=== PATIENT | male | born 1995 | race African-American/Black ===

== ENCOUNTER 2022-11-07 17:56 | Emergency (ER) | payer SELFPAY ==
[2022-11-07 18:05] VITALS: BP 124/58; PULSE 77; O2SAT 95; BMI 21.4
--- NOTE | 2022-11-07 18:06 | ED.GENADULT ---
HPI - General Adult General Chief complaint: Nausea/Vomiting/Diarrhea Stated complaint: drug use Time Seen by Provider: 11/07/22 18:06 Source: patient and EMS Mode of arrival: EMS Limitations: no limitations History of Present Illness HPI narrative: Patient is a 27 year old assigned male at with no reported medical history presenting to the emergency department today after being found on the side of the road by EMS. Patient states that he was tired so he sat down and EMS picked him up to come here. Patient states that he would like to rest and then leave. Patient states that he is homeless. Patient denies any drug use. Patient denies any dizziness, lightheadedness, abdominal pain, nausea, vomiting, fever, chills, blurry vision, double vision, loss of vision, chest pain, difficulty breathing, shortness of breath, back pain, night sweats, pain with urination, increased urinary frequency, increased urinary urgency, blood in his urine or stool, syncope or a near syncopal episode, recent trauma or falls, bowel incontinence, bladder incontinence, bowel retention, bladder retention, or any other complaints at this time. Severity: mild Relieving factors: none Exacerbating factors: none Associated symptoms: denies other symptoms Treatments prior to arrival: none Related Data Allergies Allergy/AdvReac Type Severity Reaction Status Date / Time Unable to Assess Allergy Unverified 11/07/22 18:32 Review of Systems Constitutional: Constitutional: Reports no additional constitutional complaints, Denies chills, Denies fever(s) and Denies night sweats Eyes: Eyes: Reports no additional eye complaints, Denies blurry vision, Denies change in vision, Denies diplopia, Denies eye discharge, Denies loss of vision and Denies eye pain ENT: Denies dizziness Cardiovascular: Cardiovascular: Reports no additional cardiovascular complaints, Denies chest pain, Denies lightheadedness, Denies Loss of Consciousness and Denies dyspnea Respiratory: Respiratory: Reports no additional respiratory complaints and Denies dyspnea Gastrointestinal: Gastrointestinal: Reports no additional gastrointestinal complaints, Denies abdominal pain, Denies melena, Denies hematochezia, Denies change in bowel habits and Denies change in stool character Genitourinary: Genitourinary: Reports no additional male genitourinary complaints, Denies hematuria, Denies oliguria, Denies difficulty urinating, Denies dysuria, Denies urinary frequency, Denies urinary hesitancy, Denies urinary incontinence and Denies urinary urgency Musculoskeletal: Musculoskeletal: Reports no additional musculoskeletal complaints, Denies numbness and Denies tingling Neurologic: Denies dizziness, Denies loss of vision, Denies numbness and Denies tingling Psychiatric: Psychiatric: Reports no additional psychiatric complaints Endocrine: Endocrine: Reports no additional endocrine complaints Hematologic/Lymphatic: Hematologic/Lymphatic: Reports no additional hematologic/lymphatic complaints Allergic/Immunologic: Allergic/Immunologic: Reports no additional allergic/immunologic complaints PMFSH Past Medical History Attestation statement: The following information was validated with the patient. Source: old records reviewed and nursing notes reviewed Physical Exam ED Vital Signs: Vital Signs - 24 hr 11/07/22 21:52 11/07/22 22:58 11/08/22 00:16 Temperature 98.2 F 97.9 F Pulse Rate 52 56 72 Respiratory Rate 12 12 16 Blood Pressure 97/68 104/58 L 99/55 L Pulse Oximetry 98 94 97 Oxygen Delivery Method Room Air Room Air Room Air BMI result Body Mass Index 21.4 Const General: cooperative, no acute distress, alert and awake Nutritional Appearance: well nourished Orientation/consciousness: patient oriented x3 Limitations: no limitations HENMT Head: Yes normal to inspection and Yes atraumatic Ears: hearing grossly normal bilaterally and external ears normal General nose exam: Normal external nose present, no nasal discharge noted and no epistaxis Face and sinus: Yes normal facial exam, No abrasion and No laceration Mouth: Normal oral and palatal mucosa present, no drooling and no muffled voice Eyes General: appearance normal, both eyes and all related structures Periorbital: periorbital findings normal Eyelids: Yes eyelids normal Conjunctivae: conjunctivae normal Pupils: Equal, round and reactive pupils present EOM: EOMs intact bilaterally Neck Neck: Yes normal visual inspection, Yes full ROM and Yes no lymphadenopathy Chest Chest palpation & inspection: normal inspection of the chest Resp Effort & Inspection: normal respiratory effort and able to speak in complete sentences Auscultation: clear to auscultation bilaterally Cardio Rate: regular rate Rhythm: regular rhythm GI Inspection: Yes normal to inspection Palpation (GI): Soft to palpation, not firm, nontender and no guarding Neuro General: patient oriented x3 and moves all extremities Cranial nerves: Yes Equal, round and reactive pupils present Cognition (Neuro): normal cognition Motor exam (neuro): 08/20 motor strength present throughout Sensory Exam: Normal double simultaneous stimulation for sensation Coordination: [id number] test normal Extrem General: Yes normal to inspection, Yes full ROM and Yes capillary refill normal Psych Appearance: grossly normal Mental Status: mental status grossly normal Affect: normal affect Attitude: cooperative Thought process: Normal thought process present Thought content: Normal thought content present Insight: Good insight present (Psych) Medical Decision Making Medical Decision Making MDM Narrative: Patient is a 27 year old assigned male at with no reported medical history presenting to the emergency department today requesting rest. Patient's physical exam was unremarkable. Patient refused any kind of medical work up including imaging or lab work. Patient does not have any identification on him and has given us multiple versions of a name, therefore, patient was registered as a Paco Mackenzie. Patient is alert and oriented. I suspect drug use and malingering secondary to homelessness. I explained my physical exam findings to the patient. I answered all questions asked by the patient. Patient remains in the department resting at this time. Patient will need to be re-evaluated by an emergency department provider and by the CARE team prior to dispisiton. Differential Diagnosis Differential Diagnoses: The differential diagnosis associated with the presentation includes Drug use Drug abuse Homelessness Admission/Observation Consideration of admission/observation: Escalation of care including admission/observation considered Disposition will be determined after the patient is re-evaluated and evaluated by CARE team. Independent Historian Clinical information obtained from an independent historian. History obtained from or confirmed by: EMS (EMS provided additional history and confirmed the history provided by the patient.) Discharge Plan Discharge Clinical Impression: Homeless Patient Disposition: Still a Patient
[2022-11-07 21:52] VITALS: BP 97/68; PULSE 52; RESP 12; TEMP 36.8; O2SAT 98
[2022-11-07 22:58] VITALS: BP 104/58; PULSE 56; RESP 12; O2SAT 94
[2022-11-08 00:16] VITALS: BP 99/55; PULSE 72; RESP 16; TEMP 36.6; O2SAT 97
[2022-11-08 02:11] VITALS: BP 96/60; PULSE 74; RESP 14; O2SAT 98
[2022-11-08 04:05] VITALS: BP 103/56; PULSE 77; RESP 14; O2SAT 98
--- NOTE | 2022-11-08 05:27 | PC.NURSE ---
Pt a&O x 4, ambulated to rest room with steady gait but declined to give urine sample. underground foreman at bedside pt able to give name and , denies SI, HI and pain. Pt denies any substance abuse and verbalized he is able to leave at 0600. Patients vitals are stable, given sandwich and liliana-jade. no apparent distress, denies any complaints.
[2022-11-08] MEDS: Naloxone HCl Nasal TAKE HOME 4 MG SPRAY 8 MG NOSTRILALT (06:20)
--- NOTE | 2022-11-08 06:20 | PC.NURSE ---
Unable to scan Naloxone 4 mg x2 nasal spray. Patient provided Naloxone to take with him at the time of discharge.
== END 2022-11-08 06:55 | disposition home or self-care (01) ==
PROVIDERS: Emergency Provider Emergency Medicine
DX: F12.90 Cannabis use, unspecified, uncomplicated (principal); Z59.02 Unsheltered homelessness
CPT/HCPCS: 99284

== ENCOUNTER 2022-11-13 22:58 | Emergency (ER) | payer SELFPAY ==
[2022-11-13 23:20] VITALS: BP 111/58; BP 112/76; PULSE 54; PULSE 78; RESP 14; TEMP 36; O2SAT 97; O2SAT 99; BMI 19.5
--- NOTE | 2022-11-13 23:30 | PC.NURSE ---
dr feliz made aware of pt HR 40-50s. per no new orders.
--- NOTE | 2022-11-13 23:48 | ED_ITS ---
HPI - Overdose General Chief Complaint: ETOH/Substance Use Stated Complaint: DRUG USE -NARCAN LETHARGIC Time Seen by Provider: 11/13/22 23:37 Source: EMS and RN notes reviewed Mode of arrival: EMS Limitations: altered mental status History of Present Illness HPI Narrative: 27-year-old male who was brought to emergency department by ambulance. Patient is altered and cannot give a good history. According to the nursing notes the patient was found by police, he was slumped over on a bike. The patient admitted to smoking marijuana but he denied using any other drugs. The police did find a crack pipe in the patient's belongings. Patient did not receive any Narcan prior to arrival. The patient was seen in the emergency department on 11/07/2022. In reviewing this record the patient was found on the side of the road by EMS. He reported being very tired and denied drug use at that time. He did report that he was homeless. Related Data Allergies Allergy/AdvReac Type Severity Reaction Status Date / Time Unable to Assess Allergy Unverified 11/07/22 18:32 Review of Systems Review of Systems: Yes all other systems are reviewed and are negative [facility] Past Medical History Attestation statement: The following information was validated with the patient. [facility] Narrative: Past medical history: None . Social history: The patient is homeless Social History Social History Alcohol intake: never Substance Use Type: Heroin Physical Exam Vital Signs: Vital Signs: Last Vital Signs Temp 96.8 F 11/13/22 23:20 Pulse 54 11/13/22 23:20 Resp 14 11/13/22 23:20 BP 111/58 L 11/13/22 23:20 Pulse Ox 99 11/13/22 23:20 O2 Del Method Room Air 11/13/22 23:20 BMI result Body Mass Index 19.5 Vital signs were unremarkable except for bradycardia with a pulse of 54 General: Patient is somnolent but arousable, he was able to tell me his name but then fell back asleep. HEENT: Head is normal cephalic atraumatic, patient's pupils are small and 3 mm but not pinpoint, they are reactive, sclera contact however normal. Neck: Soft Lungs: Clear to auscultation Abdomen: Soft, nontender nondistended Back: No CVA tenderness Extremities: No trauma Neuro: Patient is somnolent but arousable, he does withdraw to pain, does move extremities symmetrically Medical Decision Making Medical Decision Making MDM Narrative: 27-year-old male who was brought to the emergency department after was found bipolar slumped over on a bicycle. Patient did admit to smoking marijuana and the police did find a crack pipe in his belongings. Patient is somnolent but arousable. His exam was otherwise unremarkable. Patient's presentation is consistent with drug use possibly opiates, alcohol or other substances. The patient will be monitored here in the emergency department until he is more awake and arousable and can be discharged home. 0149: At the end of my shift, the patient is still somnolent, he has had no respiratory depression. The patient's care was turned over to my colleague, Dr. Power Dobbs. Differential Diagnosis Differential Diagnoses: The differential diagnosis associated with the presentation includes Differential diagnosis includes but is not limited to heroin use, fentanyl use, alcohol intoxication, cocaine use, marijuana use Admission/Observation Consideration of admission/observation: Escalation of care including admission/observation considered Social Determinants Patient?s care significantly limited by Social Determinants of Health including: Inadequate housing Discharge Plan Discharge Clinical Impression: Overdose Patient Disposition: Still a Patient
--- NOTE | 2022-11-14 00:15 | PC.NURSE ---
this rn assumed care of pt @ [id number]. pt cooperative ambulatory to restroom to change into hospital gown. pt admits to smoking marijuana, denies any other substance use. pt belongings secured in decon. pt repositioned to stretcher. placed on o2 monitor. arrousable to verbal and painful stimuli
[2022-11-14 02:28] VITALS: BP 103/52; PULSE 49; RESP 12; TEMP 36.2; O2SAT 99
--- NOTE | 2022-11-14 04:04 | PC.NURSE ---
pt remains sleeping at this time. spo2 97% RR 14. pt positioned on back
[2022-11-14 04:32] VITALS: BP 90/53; PULSE 57; RESP 17; TEMP 36.2; O2SAT 98
[2022-11-14 06:02] VITALS: BP 97/60; PULSE 50; RESP 14; TEMP 36.1; O2SAT 96
[2022-11-14] MEDS: Naloxone HCl Nasal 4 MG SPRAY NOSTRILALT (06:06)
--- NOTE | 2022-11-14 06:27 | PC.NURSE ---
pt provided with take home narcan. pt ambulatory at discharge. pt provided with discharge packet. pt verbalized understanding of discharge plan. pt brought to decon to claim belongings security discharged pt from decon
== END 2022-11-14 06:29 | disposition home or self-care (01) ==
PROVIDERS: Emergency Provider Emergency Medicine
DX: T40.5X1A Poisoning by cocaine, accidental (unintentional), initial encounter (principal); Y92.9 Unspecified place or not applicable; F12.10 Cannabis abuse, uncomplicated; Z59.00 Homelessness unspecified
CPT/HCPCS: 99284

== ENCOUNTER 2023-02-18 04:40 | Emergency (ER) | payer MEDICAID, SELFPAY ==
[2023-02-18 04:51] VITALS: BP 133/86; BP 140/90; PULSE 70; PULSE 82; RESP 20; O2SAT 100; BMI 26.7
--- NOTE | 2023-02-18 05:18 | PC.NURSE ---
pt belongings placed into decon
[2023-02-18 06:00] VITALS: BP 128/69; PULSE 85; RESP 19; O2SAT 97
--- NOTE | 2023-02-18 06:58 | ED.OVERDOSE ---
HPI - Overdose General Chief Complaint: Overdose Stated Complaint: Overdose Time Seen by Provider: 02/18/23 06:50 Source: patient, EMS, RN notes reviewed and old records reviewed Mode of arrival: EMS History of Present Illness HPI Narrative: 27-year-old male with no known past medical history presenting to the ED via EMS s/p being found unresponsive on the side of the road. Patient was given 4 mg of intranasal Narcan with positive result. Patient denies any drug or ETOH use. Patient not cooperative or interactive with history/exam. Of note patient has been seen in our ED for similar symptoms in the past with suspected substance abuse/overdose. Related Data Allergies Allergy/AdvReac Type Severity Reaction Status Date / Time Unable to Assess Allergy Unverified 02/18/23 04:58 Review of Systems Review of Systems: ROS limited as patient uncooperative Yes all other systems are reviewed and are negative Constitutional: Constitutional: Reports as per [facility] Past Medical History Attestation statement: The following information was validated with the patient. Source: old records reviewed Social History Social History Unable to assess alcohol history related to: Refusing to respond Alcohol intake: never Use of substances other than those prescribed or required for medical reasons: Refusing to respond Substance Use Type: Crack/Cocaine and Marijuana Advance Directives: No Advance Directives Information Provided: No Physical Exam Vital Signs: Vital Signs: Last Vital Signs Pulse 87 02/18/23 07:12 Resp 14 02/18/23 07:12 BP 119/65 02/18/23 07:12 Pulse Ox 98 02/18/23 07:12 O2 Del Method Room Air 02/18/23 07:12 BMI result Body Mass Index 26.7 Const: Other: Lethargic however easily arousable General: no acute distress; No cooperative or acute distress HEENT: Head: Yes normal to inspection, Yes atraumatic, No Michael's sign and No raccoon eyes Ears: hearing grossly normal bilaterally General nose exam: Normal external nose present Face and sinus: Yes normal facial exam Eyes: General: appearance normal, both eyes and all related structures EOM: EOMs intact bilaterally Neck: Neck: Yes normal visual inspection and Yes no meningeal signs Resp: Effort & Inspection: normal respiratory effort and no respiratory distress Auscultation: clear to auscultation bilaterally Cardio: Rate: regular rate Heart sounds: S1 normal heart sound present and S2 normal heart sound present GI: Inspection: Yes normal to inspection Palpation (GI): Soft to palpation, nontender, no guarding and not rigid Skin: Rashes: no rashes Wounds: no wounds Neuro: General: tone normal, moves all extremities, no meningeal signs and CN's II-XI intact bilaterally Cranial nerves: Yes CN's II-XII intact bilaterally Extrem: General: Yes normal to inspection Course Course Course Narrative: -1000--patient is awake and alert tolerating p.o. in stretcher. assistant baseball coach attempted to speak with patient however was not interested. This health underwriter tried to speak with patient again, he will not specify events that happened, responsd w/ I'm okay & continues to refuse taking any illicit substances. However does deny SI/HI. Results discussed with patient including worrisome signs and symptoms and strict return precautions, and when to return to the emergency department. They verbalized understanding and feel safe for discharge at this time. Medical Decision Making Medical Decision Making MDM Narrative: 27-year-old male with no known past medical history presenting to the ED via EMS s/p being found unresponsive on the side of the road. Patient was given 4 mg of intranasal Narcan with positive result. On exam vital signs stable, NAD, non toxic appearing, lethargic however easily arousable, uncooperative with history/physical at this time. Concern for substance abuse or ETOH use. Will continue to observe and re-evaluate for clinical sobriety. Plan: HARDY, observe, Recovery consult. Patient will be discharged with Narcan to go Patient placed in position and sedation at 07:07 as needs more time for clinical sobriety. Please refer to course for remaining clinical decision making, interpretation of labs/imaging results, and discussions with consultants and/or family members. Differential Diagnosis Differential Diagnoses: The differential diagnosis associated with the presentation includes As above Consult Healthcare Provider Management of the patient was discussed with: Behavioral Health Provider Lab Data [facility] Lab Attestation statement: I reviewed the patient's lab results. Independent Historian Clinical information obtained from an independent historian. History obtained from or confirmed by: EMS External Record Review External record reviewed: Inpatient record, Office record, Outpatient record, Prior outpatient labs, Prior outpatient radiology, Primary care record and Outside ED record Tests considered The following testing was considered but not selected: As above Social Determinants Patient?s care significantly limited by Social Determinants of Health including: Inadequate housing, Low income, Alcoholism and drug addiction in family, Problems related to primary support group and Unemployment Discharge Plan Discharge Clinical Impression: Drug overdose Patient Disposition: Still a Patient Instructions: Adult Overdose (ED) Additional Instructions: Avoid drug and alcohol use, this can kill you Its a good idea to keep Narcan on you at all times Consider detox Follow-up with [facility] as needed If you have thoughts of hurting yourself or others please return to the emergency department Referrals: [facility] [Provider Group] [facility] [Outside]
[2023-02-18 07:12] VITALS: BP 119/65; PULSE 87; RESP 14; O2SAT 98
[2023-02-18] MEDS: Naloxone HCl Nasal TAKE HOME 4 MG SPRAY 8 MG NOSTRILALT (10:25)
--- NOTE | 2023-02-18 10:25 | PC.NURSE ---
ambulated with steady gait to decon for clothes, take home narcan provided for patient.
--- NOTE | 2023-02-18 10:30 | HO.SUDE ---
Met with pt in ED22 who is here for OD to complete SUDE. Pt reports he has not been using any substances and never has, informing he has no interest or need for recovery supports and would like to go home. T/W informed pt of harm reduction and overdose prevention with pt verbalizing understanding and has no other questions or concerns at this time.
== END 2023-02-18 10:25 | disposition home or self-care (01) ==
PROVIDERS: Emergency Provider Emergency Medicine Emergency Medical Services
DX: T40.5X1A Poisoning by cocaine, accidental (unintentional), initial encounter (principal); Y92.9 Unspecified place or not applicable; Z71.51 Drug abuse counseling and surveillance of drug abuser
CPT/HCPCS: 99284; 99285

== ENCOUNTER 2023-11-12 17:08 | Emergency (ER) | payer MEDICAID, SELFPAY ==
--- NOTE | 2023-11-12 | ECG_ITS ---
Test Reason : RHYTHM CHECK Blood Pressure : / mmHG Vent. Rate : 072 BPM Atrial Rate : 072 BPM P-R Int : 392 ms QRS Dur : 104 ms QT Int : 390 ms P-R-T Axes : 061 030 053 degrees QTc Int : 427 ms Sinus rhythm with 1st degree A-V block Abnormal ECG No previous ECGs available Referred By: Krissy Garza Electronically Signed By:ELIEZER ZAVALA
[2023-11-12 17:21] VITALS: BP 124/58; BP 138/86; PULSE 79; PULSE 80; RESP 14; O2SAT 92; O2SAT 98; BMI 23.8
--- NOTE | 2023-11-12 17:21 | ED.OVERDOSE ---
HPI - Overdose General Stated Complaint: OD, in/out of consciousness, narcan given Time Seen by Provider: 11/12/23 17:12 Source: patient and EMS Mode of arrival: EMS Limitations: other (Somnolent) History of Present Illness ED Provider: Dr. Krissy Garza HPI Narrative: Patient comes to the emergency room via ambulance. According to EMS, a bystander saw the patient he was slumped over a wall in [address] in [place], called for possible overdose. When EMS arrived, the patient was by himself, sitting on the floor leaning against the wall. Patient was given 0.5 mg of IV Narcan. Patient woke up immediately. Patient denies SI or HI, admits to using crack cocaine and heroin. Patient had just picked up food from a restaurant. Patient here in the emergency room somnolent, easily arousable, denies any falls, admits to heroin abuse. Denies SI or HI Related Data Allergies Allergy/AdvReac Type Severity Reaction Status Date / Time Unable to Assess Allergy Unverified 11/12/23 17:24 Review of Systems Review of Systems: Constitutional : No Weight loss, No Fever, No Chills, No Night Sweats, No Fatigue, No Malaise ENT/Mouth : No Hearing loss, No Ear Pain, No Nasal Congestion, No Sinus Pain, No Hoarseness, No sore throat, No Rhinorrhea, No Swallowing Difficulty Eyes: No Eye Pain, No Swelling, No Redness, No Foreign Body, No Discharge, No Vision Changes Cardiovascular : No Chest Pain, No SOB, No Dyspnea on Exertion, No Orthopnea, No Edema, No Palpitations Respiratory : No Cough, No Sputum, No Wheezing, No Smoke Exposure, No Dyspnea Gastrointestinal : No Nausea, No Vomiting, No Diarrhea, No Constipation, No abdominal Pain, No Hematochezia, No Melena Genitourinary : no irregular bleeding, No Dysuria, No Urinary Frequency, No Hematuria, No Urinary Incontinence, No Urgency, No Flank Pain, No Urinary Flow Changes, No Hesitancy Musculoskeletal : No joint pain, No Myalgias, No Joint Swelling Skin : No Skin Lesions, No rash Neuro : No Weakness, No Numbness, No Paresthesias, No Loss of Consciousness, No Dizziness, No Headache Psych : No Anxiety/Panic, No Depression, No SI/HI/AH/VH, admits to polysubstance abuse Heme/Lymph: No Bruising, No Bleeding,No Lymphadenopathy Endocrine : No Polyuria, No Polydipsia, No Temperature Intolerance PMF Past Medical History Medical History (Updated 11/12/23 @ 17:25 by Krissy Garza MD) Polysubstance abuse Course Course Course Narrative: -patient awake, alert, very somnolent but easily arousable -vitals stable, oxygen saturation 98% on room air -patient denies HI or SI -when patient is a bit more awake, we will assess for patient's willingness to get a care/sude consult/addiction medicine -patient will be discharged home with intranasal Narcan -physician observation started at 17:25 Medical Decision Making Differential Diagnosis Differential Diagnoses: The differential diagnosis associated with the presentation includes (Polysubstance abuse, overdose) Admission/Observation Consideration of admission/observation: Escalation of care including admission/observation considered (Patient is under physician observation) Critical Care Time Critical Care Time Critical Care Time: Yes Total Critical Care Time: 45 Attestation: I have personally provided critical care time. Time includes review of lab data, radiology results, discussion with consultants, and monitoring for potential decompensation. Intervention performed as documented. Discharge Plan Discharge Clinical Impression: Overdose Patient Disposition: Still a Patient
[2023-11-12 17:24] VITALS: BP 138/86; PULSE 79; RESP 14; O2SAT 98
--- NOTE | 2023-11-12 17:29 | PC.NURSE ---
Pt arrives via EMS from the community for concerns of overdose. Per EMS Pt used Heroin and Cocaine and was reported to be dosing in and out. 0.5 of Narcan given via EMS after noted desat to 90's and RR below 10. 20g RAC placed and IVF started. Pt is currently resting with eye closed and does not respond to questioning at this time. VSS and Pt is breathing safely and sating 99% RA
--- NOTE | 2023-11-12 17:42 | PC.NURSE ---
Security changed Pt over by security. Belongings searched/bagged. Shopping bag of food and drinks left at Pts beside per security as it was searched and cleared. All other Pt belongings brought to Decon.
[2023-11-12 17:44] LABS: Glucose, Whole Blood 110 mg/dL (60-115)
[2023-11-12 19:17] VITALS: BP 111/63; PULSE 74; RESP 14; TEMP 36.8; O2SAT 97
--- NOTE | 2023-11-12 19:19 | MHC.EDTECH ---
This tech took over care of patient at 1900,hourly rounds and vitals completed,patient is resting comfortably,call brown in reach
[2023-11-12 19:41] VITALS: BP 113/65; PULSE 75; RESP 13; O2SAT 98
[2023-11-12 22:00] VITALS: BP 112/64; PULSE 71; RESP 16; TEMP 36.6; O2SAT 98
--- NOTE | 2023-11-12 22:03 | MHC.EDTECH ---
Hourly rounds and vitals completed,patient is resting comfortably,call brown in reach
[2023-11-13] VITALS: BP 108/69; PULSE 62; RESP 14; TEMP 36.5; O2SAT 97
--- NOTE | 2023-11-13 00:14 | MHC.EDTECH ---
Hourly rounds and vitals completed call brown in reach
[2023-11-13 01:57] VITALS: BP 116/77; PULSE 41; RESP 14; O2SAT 100
--- NOTE | 2023-11-13 02:03 | MHC.EDTECH ---
Hourly rounds and vitals completed,HR is low at 41,RN at bedside and made aware
[2023-11-13 04:00] VITALS: BP 116/72; PULSE 48; RESP 14; TEMP 36.6; O2SAT 99
--- NOTE | 2023-11-13 04:22 | MHC.EDTECH ---
Hourly rounds and vitals completed,patient urinated 650MLS in urinal
--- NOTE | 2023-11-13 04:49 | PC.NURSE ---
patient woke up to use the urinal, voided, and then returned to sleep.
[2023-11-13 06:11] VITALS: BP 110/74; PULSE 54; RESP 14; TEMP 36.6; O2SAT 98
--- NOTE | 2023-11-13 07:51 | PC.NURSE ---
pt arousable to verbal stimuli. moved to 22H at this time. offers no complaints, resting with eyes closed. RR even and unlabored
[2023-11-13 09:29] LABS: Glucose, Whole Blood 94 mg/dL (60-115)
[2023-11-13 11:31] VITALS: BP 124/84; PULSE 50; RESP 17; TEMP 36.9; O2SAT 99
--- NOTE | 2023-11-13 12:05 | PC.NURSE ---
pt awake, eating a sandwhich at this time and drank a cup of liliana jade.
[2023-11-13] MEDS: Naloxone HCl Nasal TAKE HOME 4 MG SPRAY 8 MG NOSTRILALT (13:36)
[2023-11-13 13:48] VITALS: BP 124/84; PULSE 50; RESP 17; TEMP 36.9; O2SAT 99
--- NOTE | 2023-11-13 13:48 | PC.NURSE ---
pt ambulated well, ate lunch. plan to d/c
== END 2023-11-13 13:49 | disposition home or self-care (01) ==
PROVIDERS: Emergency Provider Emergency Medicine
DX: T40.1X1A Poisoning by heroin, accidental (unintentional), initial encounter (principal); T40.5X1A Poisoning by cocaine, accidental (unintentional), initial encounter; I44.0 Atrioventricular block, first degree; R40.4 Transient alteration of awareness; Y92.89 Other specified places as the place of occurrence of the external cause
CPT/HCPCS: 82947; 93005; 99285

== ENCOUNTER → 2023-11-12 18:11 | Outpatient (BNV) | payer SELFPAY | PROVIDERS: Emergency Provider Emergency Medicine; Visit Provider Internal Medicine | DX: R94.31 Abnormal electrocardiogram [ECG] [EKG] (principal) | CPT/HCPCS: 93010 ==